=== PATIENT | female | born 1985 | race Caucasian/White ===

== ENCOUNTER 2018-02-12 15:02 | Inpatient (IN) | payer BC ==
[2018-02-12 17:26] VITALS: BMI 24.5
[2018-02-12] MEDS ORDERED: Lactated Ringer's 1,000 ML IV ONE (17:26)
[2018-02-12] MEDS ORDERED: Lactated Ringer's 1,000 ML IV SCH (17:30)
[2018-02-12] MEDS ORDERED: Oxytocin 30 UNIT 30 UNITS/500 ML BAG IV ONE (17:37)
[2018-02-12 18:19] LABS: BASO % 0.4 % (0.0-2.0); EOS # 0.1 K/uL (0.0-0.7); EOS % 1.2 % (0.0-4.0); HEMOGLOBIN 12.6 g/dL (12.0-16.0); LYMPH # 2.7 K/uL (1.0-4.3); LYMPH % 26.9 % (20.0-40.0); MEAN CELL VOLUME 87.5 fl (81.0-99.0); MEAN CORPUSCULAR HEMOGLOBIN 29.5 pg (27.0-31.0); MEAN CORPUSCULAR HGB CONC 33.7 g/dL (33.0-37.0); MEAN PLATELET VOLUME 10.5 fl (7.2-11.7); MONO # 0.5 K/uL (0.0-0.8); MONO % 4.7 % (0.0-10.0); NEUT # 6.8 K/uL (1.8-7.0); NEUT % 66.8 % (50.0-75.0); RBC 4.26 Mil/uL (3.80-5.20); RED CELL DISTRIBUTION WIDTH 13.4 % (11.5-14.5); WHITE BLOOD COUNT 10.2 K/uL (4.8-10.8)
[2018-02-12] MEDS ORDERED: Nalbuphine HCL 10 mg/ml Ampule IVP PRN (21:39)
[2018-02-12] MEDS: Lactated Ringer's 1,000 ML IV SCH ×2 (22:00→23:32)
[2018-02-12] MEDS ORDERED: Fentanyl/Bupivacaine HCl 250 ML EPI ONE (22:58)
[2018-02-13] MEDS ORDERED: ceFAZolin IV 2 gm in Dextrose 2 GM/50 ML BAG IVPB ONE ×2 (00:50→02:15)
[2018-02-13] MEDS ORDERED: Oxytocin 30 UNITS in Sodium Chloride 0.9% 500 ML IV ONE (00:55)
[2018-02-13] MEDS ORDERED: Lidocaine 2% PF (10 ml) Amp ONE (01:15)
[2018-02-13] MEDS ORDERED: Morphine 1 mg/ml preservative-free Inj(Duramorph) ONE (01:15)
[2018-02-13] MEDS ORDERED: DiphenhydrAMINE 50 mg/ml Inj IVP PRN ×2 (01:25→06:49)
[2018-02-13] MEDS ORDERED: Morphine 4 MG/ML VIAL IV PRN (01:25)
--- NOTE | 2018-02-13 01:53 | OBDS ---
MATERNAL INFORMATION Provider Comments: ptlcs nrfht luiza appearing uteurs, tubes and ovaries nuchal x 1 peidatirinc presnt ofr deliveyr ebl 800ml no complicaiotns LABOR SUMMARY No. Babies in Womb: 1 LABOR INFORMATION Reason for Induction: Not Applicable Oxytocin: Augmentation Group B Beta Strep: Negative Steroids Given: None Reason Steroids Not Administered: Not Applicable MEMBRANES Membranes Rupture Method: Spontaneous Rupture of Membranes: 02/12/2018 14:45 Amniotic Fluid Color: Clear Amniotic Fluid Amount: Moderate Amniotic Fluid Odor: Normal
--- NOTE | 2018-02-13 01:53 | OBADHP ---
Datetime: 02/12/2018 17:44 Pelvic Type - PN: Not Done Extremities - PN: Normal Abdomen - PN: Normal Back - PN: Normal Breast - PN: Not Done Lungs - PN: Normal Heart - PN: Normal Thyroid - PN: Normal Neurologic - PN: Normal HEENT - PN: Normal General - PN: Normal FHR - Baseline A Provider: 145 Dilatation, Provider: 2 Effacement, Provider: 50 Station, Provider: -2 Genitourinary Exam: Normal DTRs - PN: Normal IP Adm Impression: Term, intrauterine IP Admit Plan: Admit to unit Datetime: 02/12/2018 16:52 Admit Comment, IP Provider: This is a 32yo f 39wk present to EDU after her water broke at 3pm while she was having her U/S, Patient came directly after that. Pt state she have some cramps but den ies any active pain, constant contraction. Pt denies any complication during . Obgyn: Dr. Holly Allergy Penicillin med none PMH noen PSH none Social denies smoke/drug/ ETOH use Assessment and plan 32 yo d 39wk with suspected membrane rupture, Is in EDU for further evaluation PE cervical: 2cm 50% -2 Isidro sabri pGy1 pt seen adn eaxmiend @ 39+ wks with PROM admit to L+D IOL pitoicn pain manent prn cont tco adn efm R Ptel Comments, ACOG Physical Exam: pt is not acute distress PE WNL PE cervical 2cm 50% -2 Vital Signs Provider: Reviewed; Within Normal Limits IP Chief Complaint: Suspected ruptured membranes
[2018-02-13] MEDS ORDERED: Oxycodone/Acetaminophen 5/325 mg Tab PO PRN ×4 (02:00→06:49)
[2018-02-13] MEDS ORDERED: Bisacodyl 5mg EC Tab PO PRN ×2 (02:00→06:49)
--- NOTE | 2018-02-13 02:00 | PCM.SURG1 ---
Surgeon's Initial Post Op Note - Surgeon's Notes Surgeon: Mana Holly MD Order Processing Specialist: Niels Lira MD Type of Anesthesia: Other Pre-Operative Diagnosis: Non reassruign heart tracing remote from delveyr, term intrauterin , PROM Operative Findings: live infant cephaic presentatin, nuchal x 1, noral apeairng utuers, tubes and ovaries. pediatriican presnt for dleveyr. Dr Niels Lira was surgical assistn and present for entire case and essential in gainign enry, retraction, epxosure, holding bladdre blade, closing all layers Post-Operative Diagnosis: same as above Operation Performed: Primary low trnasvesre ceseares section Specimen/Specimens Removed: placenta Estimated Blood Loss: EBL {In ML}: 800 Blood Products Given: N/A Drains Used: No Drains Post-Op Condition: Good Date of Surgery/Procedure: 02/13/18 Time of Surgery/Procedure: 01:00
[2018-02-13] MEDS ORDERED: Simethicone 80 mg Chewtab PO SCH (04:00)
[2018-02-13 06:42] LABS: HEMOGLOBIN 11.4 g/dL (12.0-16.0); MEAN CELL VOLUME 87.5 fl (81.0-99.0); MEAN CORPUSCULAR HEMOGLOBIN 29.4 pg (27.0-31.0); MEAN CORPUSCULAR HGB CONC 33.7 g/dL (33.0-37.0); RBC 3.87 Mil/uL (3.80-5.20); RED CELL DISTRIBUTION WIDTH 13.4 % (11.5-14.5); WHITE BLOOD COUNT 12.7 K/uL (4.8-10.8)
[2018-02-13] MEDS ORDERED: Multivitamin With Minerals Tab PO SCH (09:00)
[2018-02-13] MEDS: Simethicone 80 mg Chewtab PO SCH ×3 (11:43→21:12)
[2018-02-13] MEDS: Multivitamin With Minerals Tab PO SCH (11:43)
[2018-02-13] MEDS ORDERED: Bacitracin OINT 15GM TOP PRN ×2 (16:03→16:08)
[2018-02-14] MEDS: Simethicone 80 mg Chewtab PO SCH ×4 (05:18→22:32)
[2018-02-14] MEDS: Multivitamin With Minerals Tab PO SCH (09:06)
[2018-02-15] MEDS: Simethicone 80 mg Chewtab PO SCH ×4 (05:23→21:58)
[2018-02-15] MEDS: Multivitamin With Minerals Tab PO SCH (08:39)
[2018-02-16] MEDS: Simethicone 80 mg Chewtab PO SCH ×2 (06:02→10:21)
[2018-02-16] MEDS: Multivitamin With Minerals Tab PO SCH (08:11)
[2018-02-16] MEDS ORDERED: Vitamin A/D oint 60G TP ONE (11:34)
[2018-02-16] MEDS ORDERED: Measles, Mumps, and Rubella 0.5 ML VIAL SC ONE (12:29)
[2018-02-16 21:28] VITALS: BP 127/74; PULSE 93; RESP 20; TEMP 98.2; O2SAT 98
== END 2018-02-16 14:22 | disposition home or self-care (01) | DRG 788 ==
LOC: H.EROB2 15:02 → H.L&D 17:26 → H.OB/GYN 02-13 06:30
PROVIDERS: ADMIT Obstetrics & Gynecology; ATTEND Obstetrics & Gynecology
PROC: 4A1HXCZ Monitoring of Products of Conception, Cardiac Rate, External Approach (ICD-10-PCS; 2018-02-12)
PROC: 10D00Z1 Extraction of Products of Conception, Low, Open Approach (ICD-10-PCS; principal; 2018-02-13)
DX: O76 Abnormality in fetal heart rate and rhythm complicating labor and delivery (principal); O69.81X0 Labor and delivery complicated by cord around neck, without compression, not applicable or unspecified; O42.92 Full-term premature rupture of membranes, unspecified as to length of time between rupture and onset of labor; Z3A.39 39 weeks gestation of pregnancy; Z37.0 Single live birth; Z88.0 Allergy status to penicillin